=== PATIENT | male | born 1985 | race Caucasian/White ===

== ENCOUNTER 2016-07-02 08:50 | Emergency (ER) | payer MEDICAID ==
[~2016-07-02] VITALS: Ht 175.3 cm; Wt 85.0 kg
[~2016-07-02 08:50] MED LIST: CEPH-460 PO; HYDR-3533 PO; ZOFR4TAB PO
[2016-07-02 08:56] VITALS: BP 122/83; PULSE 95; RESP 16; TEMP 98.4; O2SAT 98
[2016-07-02] MEDS ORDERED: SODIUM CHLOR 0.9% 1000 ML INJ 1,000 ML IV SCH (09:14)
[2016-07-02] MEDS ORDERED: MORPHINE SULFATE 4 MG/ML INJ IV PUSH ONE (09:15)
[2016-07-02] MEDS ORDERED: ONDANSETRON HCL 4 MG/2 ML VIAL IVP ONE (09:15)
[2016-07-02] MEDS ORDERED: SODIUM CHLORIDE 0.9% FLUSH 5 ML FLUSH IVF PRN (09:15)
--- NOTE | 2016-07-02 09:23 | PD ---
HPI Chief Complaint: Flank/Kidney Pain Time Seen by Provider: 09:10 Travel History International Travel<30 days: No Contact w/Intl Traveler<30days: No Traveled to known affect area: No History of Present Illness HPI Patient is a 30-year-old male with history of kidney stones, presents to emergency room with complaints of left sided flank pain. Patient reports that he was seen at [facility] a little over a month ago and was told that he had too big kidney stones in the left kidney which are obstructive in nature. Reports that he thinks that the size of the stones were 13mm and 22mm, reports that Dr Chin Werner (with [facility]) placed a left sided stent to his ureter and told patient that he will ultimately need lithotripsy. Patient reports that he has tried to follow up with [facility], reports that they will not see him as they do not take or except his insurance. Reports that they were trying to set up lithotripsy with [place] u[facility]ist as [place] is the only place that will accept his insurance. Patient reports that he began having increased pain to his left flank last night, reports that pain has been intermittent but increasing throughout this morning. Patient reports that pain was worse about an hour and a half ago, reports that that is when he decided to come to the emergency room. Patient reports no fevers or chills. Reports left sided flank pain radiating to his groin. Patient reports hematuria, denies dysuria, urgency or frequency. PFSH Past Medical History Diminished Hearing: No Kidney Stones: Yes (STENT) Family History Family History: Negative Social History Alcohol Use: Yes (3 beers per week) Tobacco Use: Yes (1 ppd) Substance Use: Yes (marijuana 2 days ago) Allergies-Medications (Allergen,Severity, Reaction): Coded Allergies: No Known Allergies (Verified , 07/02/16) Reported Meds & Prescriptions Reported Meds & Active Scripts Active No Active Prescriptions or Reported Medications Review of Systems General / Constitutional: No: Fever Eyes: No: Visual changes HENT: No: Headaches Cardiovascular: No: Chest Pain or Discomfort Respiratory: No: Shortness of Breath Gastrointestinal: Positive: Other (flank pain), No: Nausea, Vomiting, Abdominal Pain Genitourinary: Positive: Hematuria, No: Dysuria Musculoskeletal: No: Pain Skin: No Rash Neurologic: No: Weakness Psychiatric: No: Depression Endocrine: No: Polydipsia Hematologic/Lymphatic: No: Easy Bruising Physical Exam Narrative GENERAL: No acute distress, nontoxic SKIN: Warm and dry. HEAD: Atraumatic. Normocephalic. EYES: Pupils equal and round. No scleral icterus. No injection or drainage. ENT: No nasal bleeding or discharge. Mucous membranes pink and moist. NECK: Trachea midline. No JVD. CARDIOVASCULAR: Regular rate and rhythm. No murmur appreciated. RESPIRATORY: No accessory muscle use. Clear to auscultation. Breath sounds equal bilaterally. GASTROINTESTINAL: Abdomen soft, non-tender, nondistended. Hepatic and splenic margins not palpable. MUSCULOSKELETAL: No obvious deformities. No clubbing. No cyanosis. No edema. Patient with left-sided flank pain NEUROLOGICAL: Awake and alert. No obvious cranial nerve deficits. Motor grossly within normal limits. Normal speech. PSYCHIATRIC: Appropriate mood and affect; insight and judgment normal. Data Data Last Documented VS Vital Signs Date Time Temp Pulse Resp B/P Pulse Ox O2 Delivery O2 Flow Rate FiO2 07/02/16 08:56 98.4 95 16 122/83 98 Orders Complete Blood Count With Diff (07/02/16 09:14) Comprehensive Metabolic Panel (07/02/16 09:14) Prothrombin Time / Inr (Pt) (07/02/16 09:14) Act Partial Throm Time (Ptt) (07/02/16 09:14) Urinalysis - C+S If Indicated (07/02/16 09:14) Ct Abd/Pel W/O Iv Contrast (07/02/16 09:14) Iv Access Insert/Monitor (07/02/16 09:14) Morphine Inj (Morphine Inj) (07/02/16 09:15) Ondansetron Inj (Zofran Inj) (07/02/16 09:15) Sodium Chlor 0.9% 1000 Ml Inj (Ns 1000 M (07/02/16 09:14) Sodium Chloride 0.9% Flush (Ns Flush) (07/02/16 09:15) Urine Culture (07/02/16 09:15) Ceftriaxone Inj (Rocephin Inj) (07/02/16 10:45) Ketorolac Inj (Toradol Inj) (07/02/16 10:45) Labs Laboratory Tests Test 07/02/16 09:15 White Blood Count 10.8 TH/MM3 Red Blood Count 5.47 MIL/MM3 Hemoglobin 16.0 GM/DL Hematocrit 45.2 % Mean Corpuscular Volume 82.7 FL Mean Corpuscular Hemoglobin 29.3 PG Mean Corpuscular Hemoglobin 35.5 % Concent Red Cell Distribution Width 14.8 % Platelet Count 292 TH/MM3 Mean Platelet Volume 9.0 FL Neutrophils (%) (Auto) 80.9 % Lymphocytes (%) (Auto) 12.6 % Monocytes (%) (Auto) 5.8 % Eosinophils (%) (Auto) 0.5 % Basophils (%) (Auto) 0.2 % Neutrophils # (Auto) 8.7 TH/MM3 Lymphocytes # (Auto) 1.4 TH/MM3 Monocytes # (Auto) 0.6 TH/MM3 Eosinophils # (Auto) 0.1 TH/MM3 Basophils # (Auto) 0.0 TH/MM3 CBC Comment DIFF FINAL Differential Comment Prothrombin Time 11.4 SEC Prothromb Time International 1.0 RATIO Ratio Activated Partial 28.9 SEC Thromboplast Time Urine Color RED Urine Turbidity CLOUDY Urine pH 6.0 Urine Specific Reeders 1.025 Urine Protein 100 mg/dL Urine Glucose (UA) NEG mg/dL Urine Ketones NEG mg/dL Urine Occult Blood LARGE Urine Nitrite NEG Urine Bilirubin NEG Urine Urobilinogen LESS THAN 2.0 MG/DL Urine Leukocyte Esterase LARGE Urine RBC 132 /hpf Urine WBC 150 /hpf Urine Bacteria MOD /hpf Urine Mucus MANY /lpf Microscopic Urinalysis Comment CULTURE INDICATED Sodium Level 139 MEQ/L Potassium Level 4.0 MEQ/L Chloride Level 108 MEQ/L Carbon Dioxide Level 22.1 MEQ/L Anion Gap 9 MEQ/L Blood Urea Nitrogen 9 MG/DL Creatinine 0.87 MG/DL Estimat Glomerular Filtration 102 ML/MIN Rate Random Glucose 84 MG/DL Calcium Level 8.7 MG/DL Total Bilirubin 0.6 MG/DL Aspartate Amino Transf 8 U/L (AST/SGOT) Alanine Aminotransferase 20 U/L (ALT/SGPT) Alkaline Phosphatase 70 U/L Total Protein 7.3 GM/DL Albumin 3.7 GM/DL [facility] Medical Decision Making Medical Screen Exam Complete: Yes Emergency Medical Condition: Yes Interpretation(s) Vital Signs Date Time Temp Pulse Resp B/P Pulse Ox O2 Delivery O2 Flow Rate FiO2 07/02/16 08:56 98.4 95 16 122/83 98 Microbiology Date/Time Procedure Status Source Growth 07/02/16 09:15 Urine Culture Received Urine Random Urine Pending Differential Diagnosis Kidney stone, obstructive uropathy, pyelonephritis, cystitis, hematuria Narrative Course 30-year-old male who presents to emergency room with complaints of left-sided flank pain. Patient reports that pain has been ongoing for over a month, he does have a left-sided ureteral stents placed by DR Chin Werner with [facility]. Reports that he was told that his kidney stones are very big and that he will need further urological procedures including lithotripsy. Patient reports that an hour and half prior to coming to the emergency room, he had severe left sided flank pain. Patient decided to come to the emergency room for evaluation CBC, BMP, UA ordered to evaluate for renal function, infection, electrolyte abnormalities. CT abdomen and pelvis ordered to further evaluate kidney stones. IV placed, will give patient IV fluids and IV pain medications CT with severe left-sided hydronephrosis, large calculus in the left renal pelvis measuring 2.2 cm. At the lower pole of the left kidney, 1.2 cm kyphosis is noted with a 2 smaller adjacent calculi measuring up to 3.2 mm in size. There is mild periureteral stranding. Overall there are severe hydronephrosis and nephroureteral stent in place UA: Red, cloudy, large occult blood, large leuk esterase, 132 red blood cells, 150 white blood cells, moderate bacteria, seen on UA Patient's BUN/creatinine is 9-0.[address] Pierson who will be happy to see patient in office tomorrow. Discussed with patient need to call Dr. Pierson first thing tomorrow morning as patient will most likely require further urologic interventions Patient given copy of his CAT scan report, reviewed all labs and all studies as well as all findings. Patient will call urologist first thing tomorrow morning for appointment, understands that he needs to be seen tomorrow. Patient will return to ER as needed. Patient understands that he should not drive or operate heavy machinery while taking narcotic pain medications. Patient thankful for care. Diagnosis Primary Impression: Renal colic on left side Additional Impressions: UTI (urinary tract infection) Qualified Code: N30.01 - Acute cystitis with hematuria Hematuria Hydronephrosis Qualified Code: N13.2 - Hydronephrosis with urinary obstruction due to renal calculus Referrals: Delgado Pierson MD Patient Instructions: Narcotic given in the ED, General Instructions Additional Instructions: Please call urologist first thing tomorrow morning for appointment tomorrow Please bring your CAT scan report with you to your office appointment Return to ER as needed Please follow up with cultures from today Do not drive or operate heavy machinery while taking this narcotic pain medication. Return to ER as needed Med/Other Pt SpecificInfo: Prescription(s) given Scripts Ibuprofen 600 Mg Qtw254 Mg PO Q6H PRN (Pain/Inflammation) #40 TAB Ref 0 Prov:Roseline Baig DO 07/02/16 Oxycodone-Acetaminophen (Percocet)5-325 mg Tab1-2 Tab PO Q4H PRN (PAIN) #12 TAB Ref 0 Prov:Roseline Baig DO 07/02/16 Ciprofloxacin (Cipro)500 Mg [id number] Mg PO BID 7 Days Ref 0 Prov:Roseline Baig DO 07/02/16 Disposition: 01 DISCHARGE HOME Condition: Stable Roseline Baig DO Jul 02, 2016 09:22
[2016-07-02 09:58] LABS: AUTOMATED NEUTROPHIL # 8.7 TH/MM3 (1.8-7.7); BASOPHIL % 0.2 % (0.0-2.0); EOSINOPHIL # 0.1 TH/MM3 (0-0.4); EOSINOPHIL % 0.5 % (0.0-4.0); HEMATOCRIT 45.2 % (39.0-51.0); HEMO FLAGS DIFF FINAL; LYMPH % 12.6 % (9.0-44.0); LYMPHOCYTE # 1.4 TH/MM3 (1.0-4.8); MEAN CELL VOLUME 82.7 FL (80.0-100.0); MEAN CORPUSCULAR HEMOGLOBIN 29.3 PG (27.0-34.0); MEAN CORPUSCULAR HGB CONC 35.5 % (32.0-36.0); MONO % 5.8 % (0.0-8.0); NEUT % 80.9 % (16.0-70.0); PLATELET COUNT 292 TH/MM3 (150-450); RED BLOOD COUNT 5.47 MIL/MM3 (4.50-5.90); RED CELL DISTRIBUTION WIDTH 14.8 % (11.6-17.2); WHITE BLOOD COUNT 10.8 TH/MM3 (4.0-11.0)
--- NOTE | 2016-07-02 10:02 | RADRPT ---
EXAM DATE/TIME: 07/02/2016 09:33 [facility] COMPARISON: No previous studies available for comparison. INDICATIONS : Left flank pain today. ORAL CONTRAST: No oral contrast ingested. RADIATION DOSE: 12.59 CTDIvol (mGy) MEDICAL HISTORY : Renal calculi. SURGICAL HISTORY : left ureter stent ENCOUNTER: Initial ACUITY: 1 day PAIN SCALE: 8/10 LOCATION: Left flank TECHNIQUE: Volumetric scanning of the abdomen and pelvis was performed. Using automated exposure control and ad justment of the mA and/or kV according to patient size, radiation dose was kept as low as reasonably achievable to obtain optimal diagnostic quality images. FINDINGS: A nephroureteral stent is noted on the left, there is severe left hydronephrosis, and a large calculu s in the left renal pelvis measuring 2.2 cm. At the lower pole of the left kidney a 1.2 cm arcuate is noted with 2 smaller adjacent calculi measuring up to 3.2 mm. There is mild periureteral stranding. No bladder calculi. Spleen, pancreas, stomach, adrenal glands, right kidney, gallbladder and visualiz ed portions of the liver are unremarkable. The appendix is normal. There is no adenopathy. No aneurys m. Lung bases are clear. Osseous structures are intact. CONCLUSION: 1. Left renal calculi a calculus at the left renal pelvis. Severe hydronephrosis a nephroureteral collin nt in place. Sarthak Cali MD on July 02, 2016 at 9:58 Board Certified Radiologist. This report was verified electronically.
[2016-07-02 10:07] LABS: APTT (PATIENT) 28.9 SEC (24.3-30.1); PROTHROMBIN TIME - PATIENT 11.4 SEC (9.8-11.6)
[2016-07-02 10:17] LABS: BACTERIA, URINE MOD /hpf; BLOOD, URINE LARGE (NEG); COMMENT (UR) CULTURE INDICATED; CULTURE IF INDICATED CULTURE INDICATED; GLUCOSE,URINE NEG (NEG); KETONE, URINE NEG (NEG); MUCUS URINE MANY /lpf (OCC); NITRITE,URINE NEG (NEG); URINE COLOR RED (YELLW/STRAW)
[2016-07-02 10:18] LABS: ANION GAP 9 MEQ/L (5-15); AST (GOT) 8 U/L (15-37); BICARBONATE 22.1 MEQ/L (21.0-32.0); BLOOD UREA NITROGEN 9 MG/DL (7-18); CHLORIDE 108 MEQ/L (98-107); GLOMERULAR FILTRATION RATE 102 ML/MIN (>89); SODIUM (NA) 139 MEQ/L (136-145)
[2016-07-02 10:22] LABS: ALKALINE PHOSPHATASE 70 U/L (45-117); ALT (GPT) 20 U/L (12-78); TOTAL BILIRUBIN ADULT 0.6 MG/DL (0.2-1.0)
[2016-07-02] MEDS ORDERED: KETOROLAC TROMETHAMINE 30 MG/ML (IVP) VIAL IV PUSH ONE (10:45)
[2016-07-02] MEDS ORDERED: cefTRIAXone INJ 1,000 MG in SODIUM CHLORIDE 0.9% INJ 100 ML IV ONE (10:45)
[2016-07-02 11:00] VITALS: BP 113/68; PULSE 58; RESP 18; O2SAT 98
[2016-07-02] MEDS ORDERED: PERC5TAB12 PO (11:35)
[2016-07-02] MEDS ORDERED: IBUP-232 PO (11:35)
[2016-07-02] MEDS ORDERED: CIPR-9 PO (11:35)
== END 2016-07-02 11:56 | disposition home or self-care (01) ==
LOC: NEPA 08:50
DX: N23 Unspecified renal colic (principal); N13.2 Hydronephrosis with renal and ureteral calculous obstruction; N39.0 Urinary tract infection, site not specified; N30.01 Acute cystitis with hematuria; N13.30 Unspecified hydronephrosis
CPT/HCPCS: 74176; 80053; 81001; 85025; 85610; 85730; 87086; 96374; 96375; 99284; J0696; J1885; J2270; J2405; J7030